=== PATIENT | male | born 1980 | race Caucasian/White ===

== ENCOUNTER → 2016-09-17 | Outpatient (CLI) | payer OTHER ==
--- NOTE | 2016-09-20 15:18 | CT ---
EXAM DATE: 09/17/16 PATIENT'S AGE: 36 Patient: HAL CROW Facility: [place], [place] Site Site : [id number] Study: CT Extremity Left [id number]/[id number] 5:27:43 PM Ordering Physician: AWA Final Report: Impression : Wrist injury. Pain. Technique: CT left wrist without contrast. Comparison: None. Findings: No fracture. No dislocation. Joint spaces are preserved. Cyst in the distal pole of the scaphoid. No lytic or blastic bone lesions. No erosions. No radiopaque foreign body. Muscle bulk and attenuation are within normal limits. Impression : No fracture. No other significant abnormality in the left wrist. Dictated by Jorje Leal MD @ Sep 18 2016 12:18PM (Electronic Signature) Report Signed by Proxy and Original Signed Document filed in the Medical Record. DOT
== END ==
LOC: MW.DI 15:39
DX: M25.532 Pain in left wrist (principal)
CPT/HCPCS: 73200-26-LT; 73200-LT